=== PATIENT | female | born 1955 | race American Indian/Alaskan Native ===

== ENCOUNTER 2017-02-12 09:16 | Outpatient (CLI) | payer BC ==
--- NOTE | 2017-02-13 11:12 | Mammography Report ---
BILATERAL MAMMOGRAM with CAD: HISTORY: Cancer screening. Comparison study is dated April 13, 2009. FINDINGS: The breast tissue is heterogeneously dense, which could obscure detection of small masses (approximately 50%-75% glandular). No mass, distortion, suspicious calcification, or skin change is seen. IMPRESSION: Negative mammogram. There is no mammographic evidence of malignancy. RECOMMENDATION: Follow-up per ACS guidelines. BI-RADS CATEGORY: 1 = Negative ACR BI-RADS MAMMOGRAPHIC CODES: 0 = Needs additional imaging evaluation; 1 = Negative; 2 = Benign; 3 = Probably benign; 4 = Suspicious; 5 = Malignant; 6 = Known biopsy-proven malignancy COMMENT: 1. Dense breast tissue, i.e., adenosis, fibrocystic changes, etc., may obscure an underlying neoplasm. 2. Approximately 10% of cancers are not detected with mammography. 3. A negative mammography report should not delay biopsy if a clinically suspicious mass is present. COMMENT: Patient follow-up letters are generated in [facility].
== END 2017-02-12 09:17 | disposition home or self-care (01) ==
LOC: MAMMO 09:16
PROVIDERS: ATTEND Obstetrics & Gynecology
DX: Z12.31 Encounter for screening mammogram for malignant neoplasm of breast (principal)
CPT/HCPCS: 77067; G0202

== ENCOUNTER 2017-08-28 06:32 | Day surgery (SDC) | payer BC ==
--- NOTE | 2017-08-28 07:17 | Anesthesia Consultation ---
Anesthesia Consult and Med Hx Date of service: 08/28/17 - Airway Anesthetic Teeth Evaluation: Good ROM Head & Neck: Adequate Mental/Hyoid Distance: Adequate Mallampati Class: Class I Intubation Access Assessment: Good - Pulmonary Exam CTA: Yes - Cardiac Exam Cardiac Exam: RRR - Pre-Operative Health Status ASA Pre-Surgery Classification: ASA1 Proposed Anesthetic Plan: MAC - Central Nervous System Hx Psychiatric Problems: No - Other Systems Hx Alcohol Use: No Hx Substance Use: No Hx Cancer: No
--- NOTE | 2017-08-28 07:18 | Anesthesia Day of Surgery ---
Anesthesia Day of Surgery - Day of Surgery Patient Examined: Yes Patient H&P Reviewed: Yes Patient is NPO: Yes
[2017-08-28] MEDS: VIGAMOX OD SCH ×3 (07:40→07:50)
[2017-08-28] MEDS: MYDRIACYL OD SCH ×3 (07:40→07:50)
[2017-08-28] MEDS: AK-Dilate OD SCH ×3 (07:40→07:50)
[2017-08-28] MEDS ORDERED: TETRACAINE 0.5% OD SCH (08:00)
[2017-08-28] MEDS ORDERED: VERSED ONE (08:53)
[2017-08-28] MEDS ORDERED: SUBLIMAZE ONE (09:14)
--- NOTE | 2017-08-28 09:27 | Operative Report ---
Operative Report Operative Report: PATIENT'S NAME: DATE OF : DATE OF SURGERY: 08/28/2017 PREOPERATIVE DIAGNOSIS: Cataract right eye POSTOPERATIVE DIAGNOSIS: Same OPERATIVE PROCEDURE: Phacoemulsification with intraocular lens implantation, right eye SURGEON: Gaye Ortiz M.D. EXPLOSIVE ORDNANCE TECHNICIAN SURGEON: Irvin Lens: [id number] 12.5 D ANESTHESIA: Monitored anesthesia care in combination with topical and intracameral anesthesia because of the established specific risk of reflux, arrhythmias, or anxiety attacks associated with ocular manipulation, as well as the difficulty of the printing bindery assistant to manage such potentially catastrophic events while simultaneously attempting to complete the surgical procedure and was deemed necessary for the patient's safety to have an Math And Science Instructor present during the procedure whenever possible. An Math And Science Instructor was utilized to regulate the intravenous sedation of the patient so the patient was cooperative yet not asleep in order for the patient to successfully maintain fixation of the eye on the operating light of the microscope. COMPLICATIONS: No surgical complications No blood loss. ALLERGIES: N known drug allergies PROGNOSIS: Excellent INDICATIONS FOR SURGERY: The patient is undergoing surgery in the hopes of eliminating or improving these visual difficulties. PROCEDURE: After arriving at the surgery center, the patient was given topical anesthetic and dilating drops, as noted in the record. The patient was then taken into the operating room and given more anesthetic drops. The eyelids , lashes, and lid margins were scrubbed with Betadine solution, and the patient was draped. The Nurse Math And Science Instructor administered IV sedation and monitored the patient during the procedure. The eye was then fixated with a 0.12, and a stab incision was made in the peripheral clear cornea into the anterior chamber. This was made on my left side. Viscoelastic was next used to fill the anterior chamber. The eye was once again fixated with the 0.12 forceps and a keratome was used make an incision in clear cornea peripherally on my right hand side temporally. The capsule forceps were used to open the central anterior capsule and then make a continuous round capsulotomy. Hydrodissection was carried out utilizing a cannula and balanced salt solution to delineate the cortical material from the capsule and the nucleus from the cortical material. The phaco tip was introduced into the eye and used to remove the anterior cortical material in the area of the capsulotomy. Then the phaco tip was buried into the nucleus, and a chopping instrument was introduced into the eye and used to provide countertraction in the nucleus between this instrument and the phaco tip fracturing the nucleus. This procedure was repeated multiple times, providing multiple small segments of the lens, and then the phaco tip was used to remove each of these segments. An I/A tip was then used to remove the remaining cortex. The anterior chamber was refilled with viscoelastic. An one-piece, acrylic intraocular lens was then placed into an inserting cartridge. The tip of the inserting cartridge was introduced into the keratome incision and into the anterior chamber. The implant was gently advanced through the cartridge and into the eye, where it unfolded, and both haptics were placed in the capsular bag, where it centered nicely and appeared to be well fixated. After placement of the intraocular lens, the I~and~A handpiece was placed back into the eye and used to remove the viscoelastic, including viscoelastic that was behind the optic of the intraocular lens. The anterior chamber was then filled with balanced salt solution, and hydration of the wound was used to cause swelling of the wound and more appropriate watertight closure. When the wound was found to be firm, the patient was asked to comment on how bright the light was. If there was no light perception at all or if the light was substantially dimmer than during the rest of the surgery, the amount of fluid in the eye was decompressed to lower the intraocular pressure until the patient could see the bright light again. This was done to avoid any damage or decreased blood flow to the optic nerve. MEDICATIONS APPLIED AT END OF SURGERY: One drop of Pred Forte and Vigamox The patient was given a shield to wear at night and was instructed not to rub or push on the eye. DISCHARGE SUMMARY: The patient was released in stable condition. The patient and those with the patient were given a written sheet of postoperative instructions and counseling on any abnormal laboratory studies. The patient is to see us tomorrow for follow-up in the office and is to call immediately for any difficulties. Gaye Ortiz M.D. Date
--- NOTE | 2017-08-28 09:27 | Short Stay Summary ---
Short Stay Documentation Date of service: 08/28/17 - History H&P: obtained from office - Allergies and Medications Current Medications: Allergies No Known Allergies Allergy (Verified 08/27/17 14:05) Home Medications Medication Instructions Recorded Confirmed Last Taken Type No Known Home Medications [No 08/27/17 08/27/17 Unknown History Reported Home Medications] Active Medications Moxifloxacin HCl (Vigamox) 1 drops OD Q5MIN SAPPHIRE Stop: 08/30/17 08:01 Last Admin: 08/28/17 07:50 Dose: 1 drops Phenylephrine HCl (Ak-Dilate) 1 drops OD Q5MIN SAPPHIRE Stop: 08/28/17 13:00 Last Admin: 08/28/17 07:50 Dose: 1 drops Tetracaine HCl (Tetracaine 0.5%) 1 drops OD Q5M SAPPHIRE Stop: 08/28/17 13:00 Last Admin: 08/28/17 07:40 Dose: 1 drops Tropicamide (Mydriacyl) 1 drops OD Q5MIN SAPPHIRE Stop: 08/28/17 13:00 Last Admin: 08/28/17 07:50 Dose: 1 drops - Brief post op/procedure progress note Date of procedure: 08/28/17 Pre-op diagnosis: right cataract Post-op diagnosis: same Procedure: Phacoemulsification with intraocular lens insertion right eye Anesthesia: MAC, local Surgeon: PB YANG Estimated blood loss: none Pathology: none Condition: stable - Disposition Condition at discharge: Good Disposition: DC-01 TO HOME OR SELFCARE - Discharge Diagnoses (1) Cataract Status: Acute Qualifiers: Cataract type: age-related Age-related cataract type: nuclear Laterality : right Qualified Code(s): H25.11 - Age-related nuclear cataract, right eye Short Stay Discharge Plan Follow up with: RAND KEY MD [Primary Care Provider] - 7 Days
[2017-08-28] MEDS ORDERED: DIAMOX PO ONE (10:00)
[2017-08-28] MEDS ORDERED: PRED FORTE 1% OD SCH (10:00)
[2017-08-28 10:08] VITALS: BP 107/75
== END 2017-08-28 10:25 | disposition home or self-care (01) ==
LOC: OR 06:32
DX: H26.9 Unspecified cataract (principal)
CPT/HCPCS: 66984; J2250; J3010; V2632

== ENCOUNTER 2019-03-23 09:20 | Outpatient (CLI) | payer BC ==
--- NOTE | 2019-03-23 16:14 | Mammography Report ---
DIGITAL SCREENING MAMMOGRAM WITH CAD, 03/23/2019 INDICATION: Routine screening mammography. TECHNIQUE: Digital bilateral 2D mammography was obtained in the craniocaudal and mediolateral obliq ue projections. This examination was interpreted with the benefit of Computer-Aided Detection analysi s. COMPARISON: 02/12/2017 FINDINGS: Breast Density: The breasts are heterogeneously dense, which may obscure small masses. There is no evidence of dominant mass, suspicious calcifications or architectural distortion in eithe r breast. IMPRESSION: No mammographic evidence of malignancy. Follow up recommendation: Routine yearly BI-RADS Category 1: Negative. A "normal" or negative report should not discourage follow up or biopsy of a clinically significant f inding. A written summary of these findings will be mailed to the patient. The patient will be entered into a mammography reporting system which will generate a reminder letter for the patient's next appointmen t at the appropriate interval. The [employer] recommends yearly mammograms starting at age 40 and continuing as l claude as a woman is in good health. Breast MRI is recommended for women with an approximate 20-25% or greater lifetime risk of breast cancer, including women with a strong family history of breast or ova aidan cancer or who have been treated for Hodgkin's disease. Signer Name: Marquez Dahl MD Signed: 03/23/2019 4:09 PM Workstation Name: [id number]
== END 2019-03-23 09:21 | disposition home or self-care (01) ==
LOC: MAMMO 09:20
PROVIDERS: ATTEND Obstetrics & Gynecology
DX: Z12.31 Encounter for screening mammogram for malignant neoplasm of breast (principal); Z90.710 Acquired absence of both cervix and uterus
CPT/HCPCS: 77067

== ENCOUNTER 2019-05-25 14:01 | Emergency (ER) | payer BC ==
[2019-05-25] MEDS ORDERED: IBUPROFEN 600 MG TAB PO ONE ×2 (14:28→14:31)
--- NOTE | 2019-05-25 14:29 | Event Note ---
ED Screening Note Date of service: 05/25/19 Time: 14:27 ED Screening Note: 64 y o female presents with right thigh and leg pain x 3 days This initial assessment/diagnostic orders/clinical plan/treatment(s) is/are subject to change based on patients health status, clinical progression and re-assessment by fellow clinical providers in the ED. Further treatment and workup at subsequent clinical providers discretion. Patient/guardian urged not to elope from the ED as their condition may be serious if not clinically assessed and managed. Initial orders include: motrin in triage d-dimer
[2019-05-25] MEDS ORDERED: ACETAMINOPHEN 325 MG TAB PO ONE (16:29)
--- NOTE | 2019-05-25 16:29 | Emergency Department Report ---
ED Lower Extremity HPI - General Chief Complaint: Extremity Problem,Nontraumatic Stated Complaint: RT LEG PAIN Time Seen by Provider: 05/25/19 16:12 Source: patient, RN notes reviewed Mode of arrival: Wheelchair Limitations: No Limitations - History of Present Illness Initial Comments: During the entire history and physical examination, I am government affairs manager and escorted by nurse Victoria Michael Primary care Dr.: Dr. Cesar Key This is a pleasant 64-year-old female who presents to the ER with a complaint of nonstenotic right posterior hamstring pain, and posterior calf pain. The pain started in the calf and moves up to the proximal hamstring. The pain is present for a few days. There are no DVT or pulmonary embolism risk factors. There is no blunt trauma. The patient does a lot of heavy lifting for work. Pain is sharp and throbbing, increases with palpation and range of motion, and it decreases with rest. MD Complaint: other -: Gradual, days(s) Injury: Leg: Right Type of Injury: unknown Improves With: rest, other (patient took 200 mg of Motrin over the counter a few days ago, with minimal improvement in symptoms, and also used "icy hot.") Worsens With: movement, palpation Other Symptoms: other - Related Data Previous Rx's Medication Instructions Recorded Last Taken Type Omeprazole/Sodium Bicarbonate 1 each PO DAILY 30 Days #30 capsule 06/03/18 Unknown Rx [Omeprazole-Bicarb 20-1,100 Cap] Acetaminophen [Non-Aspirin Extra 500 mg PO Q6HR PRN #30 tablet 05/25/19 Unknown Rx Strength] Ibuprofen [Motrin] 600 mg PO Q8H PRN #30 tablet 05/25/19 Unknown Rx Allergies Allergy/AdvReac Type Severity Reaction Status Date / Time No Known Allergies Allergy Verified 05/25/19 14:02 ED Review of Systems ROS: Stated complaint: RT LEG PAIN Other details as noted in HPI Constitutional: denies: fever Eyes: denies: eye discharge ENT: denies: congestion Respiratory: denies: wheezing Cardiovascular: denies: syncope Gastrointestinal: denies: abdominal pain Genitourinary: denies: dysuria Musculoskeletal: myalgia. denies: back pain, joint swelling Skin: denies: lesions Neurological: denies: weakness, numbness, paresthesias ED Past Medical Hx - Past Medical History Previous Medical History?: No Hx HIV: No - Surgical History Past Surgical History?: No - Social History Smoking Status: Unknown if ever smoked Substance Use Type: None - Medications Home Medications: Home Medications Medication Instructions Recorded Confirmed Last Taken Type Omeprazole/Sodium Bicarbonate 1 each PO DAILY 30 Days #30 capsule 06/03/18 Unknown Rx [Omeprazole-Bicarb 20-1,100 Cap] Acetaminophen [Non-Aspirin Extra 500 mg PO Q6HR PRN #30 tablet 05/25/19 Unknown Rx Strength] Ibuprofen [Motrin] 600 mg PO Q8H PRN #30 tablet 05/25/19 Unknown Rx ED Physical Exam - General Limitations: No Limitations General appearance: alert, in no apparent distress - Head Head exam: Present: atraumatic, normocephalic - Eye Eye exam: Present: normal appearance, EOMI. Absent: nystagmus - ENT ENT exam: Present: normal exam, normal orophraynx, mucous membranes moist, normal external ear exam - Neck Neck exam: Present: normal inspection, full ROM. Absent: tenderness, meningismus - Respiratory Respiratory exam: Present: normal lung sounds bilaterally. Absent: respiratory distress - Cardiovascular Cardiovascular Exam: Present: regular rate, normal rhythm, normal heart sounds. Absent: bradycardia, tachycardia, irregular rhythm, systolic murmur, diastolic murmur, rubs, gallop - GI/Abdominal GI/Abdominal exam: Present: soft. Absent: distended, tenderness, guarding, rebound, rigid, pulsatile mass - Extremities Exam Extremities exam: Present: normal inspection, full ROM, tenderness (Lane test is functional in the bilateral lower extremities. There is reproducible right-sided posterior hamstring and calf tenderness. No redness, pus or streaking. There is no palpable cord. There is a negative Homans sign.), other (2+ pulses noted in the bilateral upper and lower extremities. There is no long bony tenderness. The muscular compartments are soft. The pelvis is stable.). Absent: pedal edema, joint swelling, calf tenderness - Back Exam Back exam: Present: normal inspection. Absent: tenderness, CVA tenderness (R), CVA tenderness (L), paraspinal tenderness, vertebral tenderness - Neurological Exam Neurological exam: Present: alert, oriented X3, normal gait, other (there is no facial droop. The tongue is midline. The extraocular movements are intact bilaterally. ). Absent: motor sensory deficit - Psychiatric Psychiatric exam: Present: normal affect, normal mood - Skin Skin exam: Present: warm, dry, intact, normal color. 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 Her exam is otherwise unremarkable. There is no indication of compartment syndrome or DVT, fracture or dislocation. She does not appear to have an emergent medical condition at this time. We discussed appropriate pain medication, physical therapy, weightbearing as tolerated. Critical care attestation.: If time is entered above; I have spent that time in minutes in the direct care of this critically ill patient, excluding procedure time. ED Disposition Clinical Impression: Right leg pain Disposition: DC-01 TO HOME OR SELFCARE Is pt being admited?: No Does the pt Need Aspirin: No Condition: Stable Additional Instructions: Rest, avoid heavy lifting and avoid strenuous physical activities. Weightbearing as tolerated. Take the prescribed pain medications as needed and/or directed. Recommend follow-up with her outpatient primary care doctor within the next 7-10 days. Patient may benefit from outpatient physical therapy. Return to the emergency room right away with new, worsening or different symptoms, or symptoms not present on the initial emergency room evaluation. Referrals: CESAR KEY MD [Staff Physician] - 3-5 Days
[2019-05-25 17:16] VITALS: BP 140/86
== END 2019-05-25 17:31 | disposition home or self-care (01) ==
LOC: ED 14:01
DX: M79.604 Pain in right leg (principal); Z79.899 Other long term (current) drug therapy
CPT/HCPCS: 36415; 85379

== ENCOUNTER 2019-09-30 07:51 | Outpatient (CLI) | payer BC ==
--- NOTE | 2019-09-30 09:06 | Cat Scan Report ---
CT NECK WITHOUT CONTRAST HISTORY: Neck swelling. COMPARISON: None. TECHNIQUE: Routine CT of the neck is performed following intravenous contrast. All CT scans at this [facility] are performed using CT dose reduction for ALARA by means of automated exposure control. CONTRAST: 100 mL Omnipaque 300 FINDINGS: Skull Base: No significant abnormality. Parotid, Carotid, Retropharyngeal, Prevertebral, Pharyngeal Mucosal, and Media Technician Spaces: No abnorm al mass, soft tissue swelling, or other significant abnormality. Airway: Patent and without significant abnormality. Lymphatics: No lymphadenopathy. Vasculature: No significant abnormality. Osseous Structures: No significant abnormality Additional findings: There is a mucous retention cyst in the left maxillary sinus. IMPRESSION: 1. No suspicious mass or adenopathy identified in the neck. Signer Name: Rufino Oates MD Signed: 09/30/2019 9:02 AM Workstation Name: [id number]
== END 2019-09-30 07:52 | disposition home or self-care (01) ==
LOC: CT 07:51
PROVIDERS: ATTEND Internal Medicine
DX: R22.1 Localized swelling, mass and lump, neck (principal); J34.1 Cyst and mucocele of nose and nasal sinus
CPT/HCPCS: 70490

== ENCOUNTER 2020-05-08 11:14 | Outpatient (CLI) | payer OTHER ==
--- NOTE | 2020-05-08 17:15 | Mammography Report ---
DIGITAL SCREENING MAMMOGRAM WITH CAD, 05/08/2020 CLINICAL INFORMATION / INDICATION: Routine screening mammography. SCREENING MAMMO TECHNIQUE: Digital bilateral 2D mammography was obtained in the craniocaudal and mediolateral obliqu e projections. This examination was interpreted with the benefit of Computer-Aided Detection analysis . COMPARISON: Prior mammograms 03/23/2019 and 02/12/2017 FINDINGS: Breast Density: The breasts are heterogeneously dense, which may obscure small masses. No dominant mass, suspicious calcifications, or architectural distortion in either breast. There has been no significant change compared with the prior examinations. IMPRESSION: No mammographic evidence of malignancy. Follow up recommendation: Routine yearly BI-RADS Category 1: Negative. A "normal" or negative report should not discourage follow up or biopsy of a clinically significant f inding. A written summary of these findings will be mailed to the patient. The patient will be entered into a mammography reporting system which will generate a reminder letter for the patient's next appointmen t at the appropriate interval. The [employer] recommends yearly mammograms starting at age 40 and continuing as l claude as a woman is in good health. Breast MRI is recommended for women with an approximate 20-25% or greater lifetime risk of breast cancer, including women with a strong family history of breast or ova aidan cancer or who have been treated for Hodgkin's disease. Signer Name: Mel Lopez MD Signed: 05/08/2020 5:10 PM Workstation Name: [id number]
== END 2020-05-08 11:15 | disposition home or self-care (01) ==
LOC: SPVWC 11:14
PROVIDERS: ATTEND Obstetrics & Gynecology
DX: Z12.31 Encounter for screening mammogram for malignant neoplasm of breast (principal)
CPT/HCPCS: 77067

== ENCOUNTER 2021-05-09 08:26 | Outpatient (CLI) | payer OTHER ==
--- NOTE | 2021-05-09 15:41 | Mammography Report ---
DIGITAL SCREENING MAMMOGRAM WITH CAD, 05/09/2021 CLINICAL INFORMATION / INDICATION: Routine screening mammography. SCREENING MAMMOGRAM TECHNIQUE: Digital bilateral 2D mammography was obtained in the craniocaudal and mediolateral obliqu e projections. This examination was interpreted with the benefit of Computer-Aided Detection analysis . COMPARISON: 05/08/2020 FINDINGS: Breast Density: The breasts are heterogeneously dense, which may obscure small masses. No dominant mass, suspicious calcifications, or architectural distortion in either breast. IMPRESSION: No mammographic evidence of malignancy. Follow up recommendation: Routine yearly BI-RADS Category 1: Negative. A "normal" or negative report should not discourage follow up or biopsy of a clinically significant f inding. A written summary of these findings will be mailed to the patient. The patient will be entered into a mammography reporting system which will generate a reminder letter for the patient's next appointmen t at the appropriate interval. The [employer] recommends yearly mammograms starting at age 40 and continuing as l claude as a woman is in good health. Breast MRI is recommended for women with an approximate 20-25% or greater lifetime risk of breast cancer, including women with a strong family history of breast or ova aidan cancer or who have been treated for Hodgkin's disease. Signer Name: Todd Hines MD Signed: 05/09/2021 3:37 PM Workstation Name: [id number]
== END 2021-05-09 08:27 | disposition home or self-care (01) ==
LOC: SPVWC 08:26
PROVIDERS: ATTEND Obstetrics & Gynecology
DX: Z12.31 Encounter for screening mammogram for malignant neoplasm of breast (principal)
CPT/HCPCS: 77067

== ENCOUNTER 2021-10-15 07:52 | Outpatient (CLI) | payer OTHER ==
--- NOTE | 2021-10-15 10:19 | XRay Report ---
LEFT TIBIA-FIBULA 2 VIEW(S) INDICATION / CLINICAL INFORMATION: R60.9 EDEMA, UNSPECIFIED .Patient noticed a big knot on the medial part of left tib fib 7 days ago. Knot is still there. COMPARISON: None available. FINDINGS: BONES / JOINT(S): No acute fracture or subluxation. Moderate tricompartment degenerative arthrosis of the left knee. SOFT TISSUES: No soft tissue mass. Mildly prominent medial and lateral varicose veins. ADDITIONAL FINDINGS: None. IMPRESSION: 1. No soft tissue mass. Mildly prominent medial and lateral varicose veins. Signer Name: Mikey Rodriguez MD Signed: 10/15/2021 10:15 AM Workstation Name: [id number]
--- NOTE | 2021-10-15 11:50 | Vascular Lab Report ---
DUPLEX DOPPLER LOWER EXTREMITY VEINS, BILATERAL INDICATION / CLINICAL INFORMATION: R60.9 EDEMA,UNSPECIFIED. Bilateral lower extremity edema TECHNIQUE: Duplex doppler imaging was performed through the veins of both lower extremities using estela ous compression and other maneuvers. COMPARISON: None available. FINDINGS: RIGHT COMMON FEMORAL VEIN: Negative. RIGHT FEMORAL VEIN: Negative. RIGHT POPLITEAL VEIN: Negative. RIGHT CALF VEINS: Negative. LEFT COMMON FEMORAL VEIN: Negative. LEFT FEMORAL VEIN: Negative. LEFT POPLITEAL VEIN: Negative. LEFT CALF VEINS: Negative. ADDITIONAL FINDINGS: Bilateral medial lower leg varicose veins. Bilateral venous reflux. IMPRESSION: 1. No sonographic evidence for DVT in either lower extremity. 2. Bilateral venous reflux and medial lower leg varicose veins. Signer Name: Mikey Rodriguez MD Signed: 10/15/2021 11:46 AM Workstation Name: [id number]
== END 2021-10-15 07:53 | disposition home or self-care (01) ==
LOC: VAS 07:52
PROVIDERS: ATTEND Internal Medicine
DX: I83.813 Varicose veins of bilateral lower extremities with pain (principal); M17.12 Unilateral primary osteoarthritis, left knee; R60.9 Edema, unspecified
CPT/HCPCS: 93970